=== PATIENT | male | born 2005 | race African-American/Black ===

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

== ENCOUNTER 2023-02-17 23:44 | Emergency (ER) | payer OTHER, MEDICAID ==
[~2023-02-17] VITALS: Ht 182.9 cm; Wt 72.7 kg
[2023-02-18 00:01] VITALS: BP 117/67
[2023-02-18] MEDS ORDERED: SODIUM CHLORIDE 0.9% 1,000 ML IV ONE (00:15)
== END 2023-02-18 02:47 | disposition left against medical advice (07) ==
LOC: ER 23:44 → EDBD 23:44 → ER 02-18 02:47
DX: R41.0 Disorientation, unspecified (principal); F12.10 Cannabis abuse, uncomplicated